=== PATIENT | female | born 1940 | race Caucasian/White ===

== ENCOUNTER 2021-01-01 15:10 | Emergency (ER) | payer MEDICARE, OTHER ==
[~2021-01-01] VITALS: Ht 157.5 cm; Wt 65.8 kg
[~2021-01-01 15:10] MED LIST: ACET500 PO; BENAML10/5 PO; CLON.1 PO; ENOX40I SC; HYDCHL25; Hair, Skin & N1 EACH PO; LETR2.5 PO; METO100ER PO; Micro-K10 MEQ PO; OXYACE5T PO; Prilosec Otc20 MG PO; TRAM50; TRAM50 PO; ZOLP10; ZOLP10 PO
[2021-01-01 19:10] LABS: BASOPHILS ABSOLUTE AUTO 0.07 K/mm3 (0.00-0.23); BASOPHILS PERCENT AUTO 1 % (0-2); MONOCYTES ABSOLUTE AUTO 0.81 K/mm3 (0.16-1.47); MONOCYTES PERCENT AUTO 9 % (4-13); White Blood Cell Count 8.85 K/mm3 (4.00-11.30)
[2021-01-01 19:14] LABS: Alanine Aminotransfer (ALT/SGP 26 U/L (12-78); Albumin, Blood 4.5 g/dL (3.4-5.0); Albumin/Globulin Ratio 1.2 (0.8-1.8); Alk Phos 82 U/L (50-136); Anion Gap 8 mmol/L (6-16); Aspartate Aminotrans (AST/SGOT 26 U/L (12-37); Bilirubin, Total 0.8 mg/dL (0.1-1.0); Blood Urea Nitrogen 9 mg/dL (8-24); Bun/Creatinine Ratio 17.8 (12.0-20.0); CO2, Blood 25 mmol/L (21-32); Calcium, Blood 9.9 mg/dL (8.5-10.1); Chloride, Blood 97 mmol/L (98-108); Creatinine, Blood 0.51 mg/dL (0.40-1.00); Globulin, Blood 3.8 g/dL (2.2-4.0); Glomerular Filtration Rate >60 (60-); Glucose, Blood 139 mg/dL (70-99); Potassium, Blood 3.9 mmol/L (3.5-5.5); Sodium, Blood 130 mmol/L (136-145); Total Protein, Blood 8.3 g/dL (6.4-8.2)
[2021-01-01 19:21] LABS: EOSINOPHILS ABSOLUTE AUTO 0.18 K/mm3 (0.00-0.68); EOSINOPHILS PERCENT AUTO 2 % (0-6); Hematocrit 47.2 % (33.0-51.0); Hemoglobin 16.8 g/dL (11.5-16.0); IMMATURE GRAN ABSOLUTE AUTO 0.03 K/mm3 (0.00-0.10); IMMATURE GRAN PERCENT AUTO 0 % (0-1); LYMPHOCYTES ABSOLUTE AUTO 2.14 K/mm3 (0.84-5.20); LYMPHOCYTES PERCENT AUTO 24 % (21-46); Mean Corpuscular HGB 32.4 pg (26.0-34.0); Mean Corpuscular HGB Conc 35.6 g/dL (31.5-36.5); Mean Corpuscular Volume 91 fL (80-100); Mean Platelet Volume 9.1 fL (9.1-12.4); NEUTROPHILS ABSOLUTE AUTO 5.62 K/mm3 (1.96-9.15); NEUTROPHILS PERCENT AUTO 64 % (41-73); Platelet Count 285 K/mm3 (150-400); RDW Coefficient Variation 12.3 % (11.7-14.2); Red Blood Cell Count 5.18 M/mm3 (3.80-5.20)
[2021-01-01 19:41] LABS: Influenza A, PCR NEGATIVE (NEGATIVE); Influenza B, PCR NEGATIVE (NEGATIVE); Resp Syncytial Virus, PCR NEGATIVE (NEGATIVE); SARS-Cov-2 (COVID-19) PCR, MMC NEGATIVE (NEGATIVE)
[2021-01-02] MEDS ORDERED: HYDR1TAB94 PO (14:31)
== END 2021-01-01 20:12 | disposition home or self-care (01) ==
LOC: ER 15:10
PROVIDERS: Orthopaedic Surgery
DX: S52.571A Other intraarticular fracture of lower end of right radius, initial encounter for closed fracture (principal); S52.614A Nondisplaced fracture of right ulna styloid process, initial encounter for closed fracture; I10 Essential (primary) hypertension; Z79.899 Other long term (current) drug therapy; Z88.5 Allergy status to narcotic agent; W10.9XXA Fall (on) (from) unspecified stairs and steps, initial encounter
CPT/HCPCS: 0241U; 25605; 73110; 73200; 76377; 80053; 85025; 93005; 93010; 99284-25; A9270; A9270-GY

== ENCOUNTER 2021-01-01 15:11 | Observation (INO) | payer MEDICARE, OTHER ==
[~2021-01-01] VITALS: Wt 63.0 kg
--- NOTE | 2021-01-02 09:10 | NUR ---
PT ARRIVED TO UNIT AT APROX [address] SUAREZ. PT REPORTS 5/10 PAIN AT TIME OF ARRIVAL, RUE WRAPPED WITH JADYN WRAP. PT REPORTS NAUSEA, MEDICATED WITH 4MG ZOFRAN IVP. 20G IV TO L FOREARM. PT TO OR AT APROX 0900.
--- NOTE | 2021-01-02 11:51 | NUR ---
PT ARRIVED BACK TO UNIT AT APROX 1140 FROM PACU. PT DENIES PAIN AT THIS TIME, REPORTS FULL SENSATION IN RUE. DENIES N/V, GIVEN CLEAR LIQUIDS TO START.
[2021-01-02] MEDS ORDERED: HYDR1TAB94 PO (14:31)
--- NOTE | 2021-01-02 15:11 | NUR ---
DISCHARGE PT DISCHARGED HOME FROM UNIT AT APROX 1510. PT'S PAIN MANAGED 11/04 WITH 1 NORCO. PT TOLERATING PO WITH NO N/V. VOIDING W/O DIFFICULTY. PT AND DAUGHTER GIVEN WRITTEN AND VERBAL DISCHARGE INSTRUCTIONS AND BOTH VERBALIZED UNDERSTANDING OF THESE INSTRUCTIONS. IV REMOVED, PT TOLERATED WELL. WHEELCHAIR TO CAR.
== END 2021-01-02 15:16 | disposition home or self-care (01) ==
LOC: SURS 15:11
PROVIDERS: ADMIT Orthopaedic Surgery
PROC: 0PSH04Z Reposition Right Radius with Internal Fixation Device, Open Approach (ICD-10-PCS; principal; 2021-01-02 09:00)
DX: S52.571A Other intraarticular fracture of lower end of right radius, initial encounter for closed fracture (principal); S52.611A Displaced fracture of right ulna styloid process, initial encounter for closed fracture; M18.9 Osteoarthritis of first carpometacarpal joint, unspecified; I10 Essential (primary) hypertension; W19.XXXA Unspecified fall, initial encounter; Z91.81 History of falling
CPT/HCPCS: A9270-GY; C1713; G0378; J0690; J1100; J1885; J2250; J2405; J2704; J3010

== ENCOUNTER → 2022-02-09 | Outpatient (CLI) | payer MEDICARE, OTHER ==
[~2022-02-09] MED LIST changes: +HYDR1TAB94 PO
== END | disposition home or self-care (01) ==
LOC: LAB SHORT 11:57 → LAB 11:57
DX: R30.0 Dysuria (principal)
CPT/HCPCS: 87077; 87086; 87186

== ENCOUNTER → 2022-06-24 | Outpatient (CLI) | payer MEDICARE, OTHER ==
[2022-06-24 09:32] LABS: Source, Urine Clean Catch
[2022-06-24 13:18] LABS: Appearance, Urine Clear (Clear); Bilirubin, Urine Neg (Neg); Blood, Urine Neg (Neg); Glucose Qualitative, Urine Neg (Neg); Ketones, Urine Neg (Neg); Leukocyte Esterase, Urine Neg (Neg); Nitrite, Urine Neg (Neg); Protein, Urine Neg (Neg); Specific Gravity, Urine 1.015 (1.003-1.022); Urobilinogen, Urine NORM (Normal)
[2022-06-24 14:11] LABS: Bun/Creatinine Ratio 10.4 (12.0-20.0); Calcium, Blood 8.9 mg/dL (8.5-10.1); Creatinine, Blood 0.58 mg/dL (0.40-1.00); Potassium, Blood 4.4 mmol/L (3.5-5.5)
[2022-06-24 15:17] LABS: Color, Urine Pale Yellow (P-Yellow)
== END ==
LOC: LAB SHORT 09:31 → LAB FUT 04-25 16:20
PROVIDERS: Internal Medicine
DX: N39.0 Urinary tract infection, site not specified (principal); I10 Essential (primary) hypertension; R73.9 Hyperglycemia, unspecified
CPT/HCPCS: 36415; 80048; 81003; 83036

== ENCOUNTER → 2022-07-11 | Outpatient (CLI) | payer MEDICARE, OTHER ==
[2022-07-11 10:37] LABS: Appearance, Urine Clear (Clear); Bilirubin, Urine Neg (Neg); Blood, Urine Neg (Neg); Color, Urine Yellow (P-Yellow); Glucose Qualitative, Urine Neg (Neg); Ketones, Urine Neg (Neg); Leukocyte Esterase, Urine Neg (Neg); Nitrite, Urine Neg (Neg); Protein, Urine Neg (Neg); Specific Gravity, Urine 1.005 (1.003-1.022); Urobilinogen, Urine NORM (Normal); pH, Urine 6.5 (5.0-8.0)
== END | disposition home or self-care (01) ==
LOC: LAB SHORT 08:00 → LAB 08:00
PROVIDERS: Internal Medicine
DX: N39.0 Urinary tract infection, site not specified (principal)
CPT/HCPCS: 81003

== ENCOUNTER → 2022-12-15 | Outpatient (CLI) | payer MEDICARE, OTHER | LOC: LAB SHORT 12:46 | DX: N39.0 Urinary tract infection, site not specified (principal) | CPT/HCPCS: 87077; 87086; 87186 ==

== ENCOUNTER 2023-02-06 11:42 | Observation (INO) | payer MEDICARE, OTHER ==
[~2023-02-06] VITALS: Ht 157.5 cm; Wt 54.8 kg
[2023-02-06 12:33] LABS: BASOPHILS ABSOLUTE AUTO 0.06 K/mm3 (0.00-0.23); BASOPHILS PERCENT AUTO 1 % (0-2); EOSINOPHILS ABSOLUTE AUTO 0.01 K/mm3 (0.00-0.68); EOSINOPHILS PERCENT AUTO 0 % (0-6); Hematocrit 40.3 % (33.0-51.0); Hemoglobin 14.2 g/dL (11.5-16.0); IMMATURE GRAN ABSOLUTE AUTO 0.01 K/mm3 (0.00-0.10); IMMATURE GRAN PERCENT AUTO 0 % (0-1); LYMPHOCYTES ABSOLUTE AUTO 0.41 K/mm3 (0.84-5.20); LYMPHOCYTES PERCENT AUTO 7 % (21-46); MONOCYTES ABSOLUTE AUTO 0.49 K/mm3 (0.16-1.47); MONOCYTES PERCENT AUTO 8 % (4-13); Mean Corpuscular HGB 32.9 pg (26.0-34.0); Mean Corpuscular HGB Conc 35.2 g/dL (31.5-36.5); Mean Corpuscular Volume 94 fL (80-100); Mean Platelet Volume 8.7 fL (9.1-12.4); NEUTROPHILS ABSOLUTE AUTO 4.89 K/mm3 (1.96-9.15); NEUTROPHILS PERCENT AUTO 83 % (41-73); Platelet Count 235 K/mm3 (150-400); RDW Coefficient Variation 12.4 % (11.7-14.2); RDW Standard Deviation 43.5 fL (35.1-46.3); Red Blood Cell Count 4.31 M/mm3 (3.80-5.20); White Blood Cell Count 5.87 K/mm3 (4.00-11.30)
[2023-02-06 12:51] LABS: International Normalized Ratio 0.97; Prothrombin Time Results 10.2 Sec (9.7-11.5)
[2023-02-06 12:54] LABS: Source, Urine Straight Cath
[2023-02-06 13:26] LABS: Appearance, Urine Clear (Clear); Bilirubin, Urine Neg (Neg); Blood, Urine Neg (Neg); Glucose Qualitative, Urine Neg (Neg); Ketones, Urine Neg (Neg); Leukocyte Esterase, Urine Neg (Neg); Nitrite, Urine Neg (Neg); Protein, Urine Neg (Neg); Urobilinogen, Urine NORM (Normal)
[2023-02-06 13:28] LABS: Color, Urine Pale Yellow (P-Yellow)
[2023-02-06 16:22] VITALS: BP 149/76
[2023-02-06] MEDS ORDERED: CEPH250A PO (18:17)
[2023-02-06 18:31] LABS: Albumin, Blood 3.7 g/dL (3.4-5.0); Albumin/Globulin Ratio 1.2 (0.8-1.8); Bilirubin, Total 0.4 mg/dL (0.1-1.0); Creatinine, Blood 0.42 mg/dL (0.40-1.00); Potassium, Blood 4.4 mmol/L (3.5-5.5); Total Protein, Blood 6.7 g/dL (6.4-8.2)
[2023-02-06 19:38] VITALS: BP 158/80
[2023-02-07 02:31] VITALS: BP 149/72
[2023-02-07 05:02] LABS: Hematocrit 42.1 % (33.0-51.0); Hemoglobin 14.8 g/dL (11.5-16.0); Mean Corpuscular HGB 32.6 pg (26.0-34.0); Mean Corpuscular HGB Conc 35.2 g/dL (31.5-36.5); Mean Corpuscular Volume 93 fL (80-100); Mean Platelet Volume 8.8 fL (9.1-12.4); Platelet Count 258 K/mm3 (150-400); RDW Coefficient Variation 12.7 % (11.7-14.2); RDW Standard Deviation 43.2 fL (35.1-46.3); Red Blood Cell Count 4.54 M/mm3 (3.80-5.20); White Blood Cell Count 8.14 K/mm3 (4.00-11.30)
[2023-02-07 05:39] LABS: Anion Gap 9 mmol/L (6-16); Blood Urea Nitrogen 6 mg/dL (8-24); Bun/Creatinine Ratio 16.9 (12.0-20.0); CHOL/HDL RATIO 1.6; CO2, Blood 25 mmol/L (21-32); Calcium, Blood 9.4 mg/dL (8.5-10.1); Chloride, Blood 104 mmol/L (98-108); Cholesterol 223 mg/dL (50-200); Creatinine, Blood 0.35 mg/dL (0.40-1.00); Glomerular Filtration Rate 101 (60-); Glucose, Blood 93 mg/dL (70-99); HDL Cholesterol 137 mg/dL (>39); LDL/HDL RATIO 0.6; Low Density Lipoprotein Chol 77 mg/dL (0-110); Potassium, Blood 3.7 mmol/L (3.5-5.5); Sodium, Blood 138 mmol/L (136-145); Triglycerides 44 mg/dL (30-160); Very Low Density Lipoprot Chol 8 mg/dL (6-32)
[2023-02-07 07:41] VITALS: BP 140/79
[2023-02-07] MEDS ORDERED: ASPI81CH PO (12:16)
[2023-02-07] MEDS ORDERED: CLOP75 PO (12:17)
[2023-02-07] MEDS ORDERED: ATOR40TA PO (12:17)
--- NOTE | 2023-02-07 14:13 | NUR ---
PT DISCHARGED THE PT AND HER FAMILY VERBALIZED UNDERSTANDING OF THE DC INSTRUCTIONS. PTS PRESCRIPTIONS FAXED TO [facility] REQUESTED. A FOLLOW UP APPOINTMENT WITH HER PCP WAS MADE PRIOR TO DC. THE PT WAS TRANSFERED VIA WHEELCHAIR ACCOMPANIED BY THIS RN AND HER FAMILY. BELONGINGS RELEASED TO THE FAMILY
--- NOTE | 2023-02-07 15:04 | NUR ---
AM ASSESSMENT IWAS PRESENT DURING AND AGREE WITH THE STUDENT CORRINE'S AM ASSESSMENT AND DOCUMENTATION ON THIS PATIENT
== END 2023-02-07 13:35 | disposition home health service (06) ==
LOC: ER 11:42 → MEDS 11:43 → ENPENDDIS 02-07 10:39 → MEDS 02-07 13:35
PROVIDERS: Emergency Medicine; ADMIT Internal Medicine
DX: I63.9 Cerebral infarction, unspecified (principal); E78.00 Pure hypercholesterolemia, unspecified; I34.0 Nonrheumatic mitral (valve) insufficiency; Z85.3 Personal history of malignant neoplasm of breast; I10 Essential (primary) hypertension; Z88.5 Allergy status to narcotic agent
CPT/HCPCS: 36415; 51701; 70496; 70498; 70551; 80048; 80053; 80061; 81003; 82947; 83036; 85025; 85027; 85610; 85730; 93005; 93010; 93306; 96374-59; 97112; 97116; 97161; 97166; 97530; 99285-25; A9270; G0378; J2405; Q9967

== ENCOUNTER 2023-11-06 10:56 | Emergency (ER) | payer MEDICARE, OTHER ==
[~2023-11-06] VITALS: Ht 157.5 cm; Wt 49.9 kg
[~2023-11-06 10:56] MED LIST changes: +ASPI81CH PO; +ATOR40TA PO; +CEPH250A PO; +CLOP75 PO
[2023-11-06 11:07] VITALS: BP 133/77
[2023-11-06] MEDS ORDERED: Amlodipine-Ben1 EAC1 PO (11:59)
[2023-11-06] MEDS ORDERED: LETROZOLE2.5 M3 PO (12:00)
[2023-11-06] MEDS ORDERED: ATORVASTATIN CA20 MG PO (12:00)
[2023-11-06] MEDS ORDERED: TOPROL XL50 M1 PO (12:02)
[2023-11-06] MEDS ORDERED: FISH OIL 1,0001 EA10 PO (12:02)
[2023-11-06] MEDS ORDERED: Norco 5-325 Ta1 EACH PO (12:48)
== END 2023-11-06 12:59 | disposition home or self-care (01) ==
LOC: ER 10:56
DX: S32.511A Fracture of superior rim of right pubis, initial encounter for closed fracture (principal); S32.591A Other specified fracture of right pubis, initial encounter for closed fracture; I10 Essential (primary) hypertension; W19.XXXA Unspecified fall, initial encounter; Y93.E9 Activity, other interior property and clothing maintenance; Y92.009 Unspecified place in unspecified non-institutional (private) residence as the place of occurrence of the external cause; Z88.5 Allergy status to narcotic agent; Z79.899 Other long term (current) drug therapy; Z79.82 Long term (current) use of aspirin; Z79.811 Long term (current) use of aromatase inhibitors; Z96.641 Presence of right artificial hip joint
CPT/HCPCS: 73502; 73700; 99284-25

== ENCOUNTER 2024-09-10 15:05 | Emergency (ER) | payer MEDICARE, OTHER ==
[~2024-09-10] VITALS: Ht 152.4 cm; Wt 43.5 kg
[~2024-09-10 15:05] MED LIST changes: +ATORVASTATIN CA20 MG PO; +Amlodipine-Ben1 EAC1 PO; +FISH OIL 1,0001 EA10 PO; +LETROZOLE2.5 M3 PO; +Norco 5-325 Ta1 EACH PO; +TOPROL XL50 M1 PO
[2024-09-10 15:13] VITALS: BP 134/80
[2024-09-10 15:43] LABS: BASOPHILS ABSOLUTE AUTO 0.07 K/mm3 (0.00-0.23); BASOPHILS PERCENT AUTO 1 % (0-2); EOSINOPHILS ABSOLUTE AUTO 0.16 K/mm3 (0.00-0.68); EOSINOPHILS PERCENT AUTO 2 % (0-6); Hematocrit 37.1 % (33.0-51.0); Hemoglobin 13.1 g/dL (11.5-16.0); IMMATURE GRAN ABSOLUTE AUTO 0.02 K/mm3 (0.00-0.10); IMMATURE GRAN PERCENT AUTO 0 % (0-1); LYMPHOCYTES ABSOLUTE AUTO 2.28 K/mm3 (0.84-5.20); LYMPHOCYTES PERCENT AUTO 29 % (21-46); MONOCYTES ABSOLUTE AUTO 0.81 K/mm3 (0.16-1.47); MONOCYTES PERCENT AUTO 10 % (4-13); Mean Corpuscular HGB 32.6 pg (26.0-34.0); Mean Corpuscular HGB Conc 35.3 g/dL (31.5-36.5); Mean Corpuscular Volume 92 fL (80-100); Mean Platelet Volume 8.9 fL (9.1-12.4); NEUTROPHILS ABSOLUTE AUTO 4.52 K/mm3 (1.96-9.15); NEUTROPHILS PERCENT AUTO 58 % (41-73); Platelet Count 281 K/mm3 (150-400); RDW Standard Deviation 44.3 fL (35.1-46.3); Red Blood Cell Count 4.02 M/mm3 (3.80-5.20); White Blood Cell Count 7.86 K/mm3 (4.00-11.30)
[2024-09-10 16:09] LABS: Albumin, Blood 3.9 g/dL (3.4-5.0); Albumin/Globulin Ratio 1.2 (0.8-1.8); Bun/Creatinine Ratio 29.4 (12.0-20.0); Calcium, Blood 9.8 mg/dL (8.5-10.1); Creatinine, Blood 0.48 mg/dL (0.40-1.00); Globulin, Blood 3.3 g/dL (2.2-4.0); Potassium, Blood 4.1 mmol/L (3.5-5.5); Total Protein, Blood 7.2 g/dL (6.4-8.2)
== END 2024-09-10 20:18 | disposition home or self-care (01) ==
LOC: ER 15:05
PROVIDERS: Physician Assistant
DX: H50.9 Unspecified strabismus (principal); I10 Essential (primary) hypertension; Z86.73 Personal history of transient ischemic attack (TIA), and cerebral infarction without residual deficits; Z88.5 Allergy status to narcotic agent; Z79.82 Long term (current) use of aspirin; Z79.899 Other long term (current) drug therapy
CPT/HCPCS: 70450; 80053; 85025; 93005; 93010; 99284-25

== ENCOUNTER 2025-02-10 21:18 | Emergency (ER) | payer OTHER, MEDICARE ==
[~2025-02-10] VITALS: Ht 152.4 cm; Wt 49.9 kg
[2025-02-10 21:58] LABS: BASOPHILS ABSOLUTE AUTO 0.07 K/mm3 (0.00-0.23); BASOPHILS PERCENT AUTO 1 % (0-2); EOSINOPHILS PERCENT AUTO 2 % (0-6); Hematocrit 35.7 % (33.0-51.0); Hemoglobin 13.1 g/dL (11.5-16.0); IMMATURE GRAN ABSOLUTE AUTO 0.08 K/mm3 (0.00-0.10); IMMATURE GRAN PERCENT AUTO 1 % (0-1); LYMPHOCYTES ABSOLUTE AUTO 1.74 K/mm3 (0.84-5.20); LYMPHOCYTES PERCENT AUTO 16 % (21-46); MONOCYTES ABSOLUTE AUTO 0.98 K/mm3 (0.16-1.47); MONOCYTES PERCENT AUTO 9 % (4-13); Mean Corpuscular HGB 32.6 pg (26.0-34.0); Mean Corpuscular HGB Conc 36.7 g/dL (31.5-36.5); Mean Corpuscular Volume 89 fL (80-100); Mean Platelet Volume 8.9 fL (9.1-12.4); NEUTROPHILS ABSOLUTE AUTO 7.65 K/mm3 (1.96-9.15); NEUTROPHILS PERCENT AUTO 71 % (41-73); Platelet Count 253 K/mm3 (150-400); RDW Coefficient Variation 12.8 % (11.7-14.2); RDW Standard Deviation 42.1 fL (35.1-46.3); Red Blood Cell Count 4.02 M/mm3 (3.80-5.20); White Blood Cell Count 10.72 K/mm3 (4.00-11.30)
[2025-02-10 22:09] LABS: Magnesium, Blood 1.7 mg/dL (1.6-2.4)
[2025-02-10 22:10] LABS: Albumin, Blood 3.6 g/dL (3.4-5.0); Bilirubin, Total 0.6 mg/dL (0.1-1.0); Bun/Creatinine Ratio 14.4 (12.0-20.0); Calcium, Blood 8.7 mg/dL (8.5-10.1); Creatinine, Blood 0.42 mg/dL (0.40-1.00); Globulin, Blood 3.7 g/dL (2.2-4.0); Phosphorus, Blood 3.4 mg/dL (2.5-4.9); Potassium, Blood 4.5 mmol/L (3.5-5.5); Total Protein, Blood 7.3 g/dL (6.4-8.2)
[2025-02-10 23:15] VITALS: BP 110/80
[2025-02-11] MEDS ORDERED: Acetaminophen 325 MG TABLET PO ONE (00:15)
[2025-02-11 00:28] LABS: Source, Urine Clean Catch
[2025-02-11 00:31] LABS: Bilirubin, Urine Neg (Neg); Blood, Urine 2+ (Neg); Glucose Qualitative, Urine Neg (Neg); Ketones, Urine Neg (Neg); Leukocyte Esterase, Urine 3+ (Neg); Nitrite, Urine Neg (Neg); Protein, Urine 2+ (Neg); Specific Gravity, Urine 1.015 (1.003-1.022); Urobilinogen, Urine NORM (Normal)
[2025-02-11 00:35] LABS: Appearance, Urine Hazy (Clear); Color, Urine Pale Yellow (P-Yellow)
[2025-02-11 00:38] LABS: Bacteria Many /hpf; Red Blood Cells, Urine 0-2 /hpf (0-2); Squamous Epithelial Cells Few /hpf (Few); White Blood Cells, Urine TNTC /hpf (0-5)
[2025-02-11] MEDS ORDERED: Cephalexin Monohydrate 500 MG Cap PO ONE (00:40)
[2025-02-11] MEDS ORDERED: Keflex500 MG PO (00:41)
== END 2025-02-11 01:12 | disposition home or self-care (01) ==
LOC: ER 21:18
PROVIDERS: Student in an Organized Health Care Education/Training Program
DX: S00.31XA Abrasion of nose, initial encounter (principal); S00.211A Abrasion of right eyelid and periocular area, initial encounter; N39.0 Urinary tract infection, site not specified; E87.1 Hypo-osmolality and hyponatremia; I10 Essential (primary) hypertension; D50.9 Iron deficiency anemia, unspecified; Z86.73 Personal history of transient ischemic attack (TIA), and cerebral infarction without residual deficits; Z88.5 Allergy status to narcotic agent; Z79.82 Long term (current) use of aspirin; Z79.899 Other long term (current) drug therapy; W01.0XXA Fall on same level from slipping, tripping and stumbling without subsequent striking against object, initial encounter
CPT/HCPCS: 36415; 70450; 72125; 80053; 81001; 82728; 83540; 83550; 83735; 84100; 85025; 87077; 87086; 87186; 93005; 93010; 99284-25; A9270

== ENCOUNTER → 2025-08-01 | Outpatient (CLI) | payer MEDICARE, OTHER ==
[~2025-08-01] MED LIST changes: +Keflex500 MG PO
[2025-08-01 19:02] LABS: Bilirubin, Urine Neg (Neg); Color, Urine Yellow (P-Yellow); Glucose Qualitative, Urine Neg (Neg); Ketones, Urine Neg (Neg); Leukocyte Esterase, Urine Neg (Neg); Protein, Urine Neg (Neg); Specific Gravity, Urine 1.010 (1.003-1.022); Urobilinogen, Urine NORM (Normal)
== END | disposition home or self-care (01) ==
LOC: LAB FUT 07-31 15:10 → LAB 09:54 → LAB SHORT 09:54
PROVIDERS: Internal Medicine
DX: R41.82 Altered mental status, unspecified (principal)
CPT/HCPCS: 81003